=== PATIENT | female | born 1980 | race Caucasian/White ===

== ENCOUNTER 2016-07-14 12:56 | Emergency (ER) | payer OTHER ==
[2016-07-14] MEDS ORDERED: NS 500 ML IV ONE (12:59)
[2016-07-14 13:07] VITALS: PULSE 78
--- NOTE | 2016-07-14 13:30 | CPEKG ---
Heart Rate: 65 RR Interval: 923 P-R Interval: 148 QRSD Interval: 84 QT Interval: 412 QTC Interval: 429 P [place]: 76 QRS [place]: 67 T Wave [place]: 53 EKG Severity - NORMAL ECG - EKG Impression: SINUS RHYTHM Electronically Signed By: Svetlana Petit 14-Jul-2016 15:04:58
[2016-07-14 13:41] LABS: % IMMATURE GRANULYOCYTES 0.2 % (0.0-1.1); ABSOLUTE IMMATURE GRANULOCYTES 0.01 10^3/uL (0.00-0.10); ADD DIFF? NO; ADD MORPH? NO; ADD SCAN? NO; ATYPICAL LYMPHOCYTE FLAG 80 (0-99); FRAGMENT RBC FLAG 0 (0-99); HEMATOCRIT 44.5 % (38.0-47.0); HEMOGLOBIN 15.5 g/dL (12.6-16.3); LEFT SHIFT FLG 0 (0-99); LIPEMIA HEMOLYSIS FLAG 90 (0-99); MEAN CELL HEMOGLOBIN 30.8 pg (27.9-34.1); MEAN CELL HEMOGLOBIN CONCENTR. 34.8 g/dL (32.4-36.7); MEAN CELL VOLUME 88.5 fL (81.5-99.8); MEAN PLATELET VOLUME 9.7 fL (8.7-11.7); PLATELET CLUMPS FLAG 0 (0-99); PLATELET COUNT 249 10^3/uL (150-400); RED BLOOD CELL COUNT 5.03 10^6/uL (4.18-5.33); RED CELL DISTRIBUTION WIDTH 12.1 % (11.5-15.2)
[2016-07-14 13:58] LABS: ANION GAP 11 mEq/L (8-16); CALCIUM 9.4 mg/dL (8.5-10.4); CARBON DIOXIDE 25 mEq/l (22-31); CHLORIDE 104 mEq/L (97-110); CREATININE 0.7 mg/dL (0.6-1.0); GLOMERULAR FILTRATION RATE > 60; GLUCOSE 110 mg/dL (70-100); POTASSIUM 4.1 mEq/L (3.5-5.2); SODIUM 140 mEq/L (134-144)
--- NOTE | 2016-07-14 14:02 | EDPHY ---
H & P Smoking Status: Never smoked Time Seen by Provider: 07/14/16 12:59 HPI/ROS: HPI Chest pain, anxiety, shortness of breath. 36-year-old female by private vehicle. She has a history of factor 5 Leiden deficiency. This patient reports that she woke at about 8:00 a.m. and felt very anxious. She describes herself as having shortness of breath. Then she thought that she might have a pulmonary embolism and started having which she describes as mid substernal chest pain. She became more anxious. This persisted for a couple of hours, the anxiety dissipated some but the chest discomfort which she describes as a mid substernal ache persisted. She has no prior history of DVT or PE. No prior history of coronary artery disease. She is not on control pills. Denies any calf pain. No other complaints. ROS: Constitutional: No fever, no chills. No weakness. Eyes: No discharge. No changes in vision. ENT: No sore throat. No nasal congestion or rhinorrhea. Respiratory: No cough. As above. Cardiac: As above, no palpitations. Gastrointestinal: No abdominal pain, no vomiting, no diarrhea. Genitourinary: No hematuria. No dysuria or increased frequency with urination. Musculoskeletal: No back pain. No neck pain. No myalgias or arthralgias. Skin: No rashes. Neurological: No headache. No focal weakness or altered sensation. Past medical history: Factor 5 Leiden deficiency. Social history: Here by herself. Nonsmoker. Physical Exam: General Appearance: Alert, no distress. This patient is responding to questions appropriately and in full sentences. This patient appears well- hydrated and well-nourished. Eyes: Pupils equal and round no pallor or injection. No lid edema, erythema or injection. Respiratory: There are no retractions, lungs are clear to auscultation with good air movement bilaterally. Cardiovascular: Regular rate and rhythm. No murmur. No chest wall tenderness on palpation. Gastrointestinal: Abdomen is soft and nontender, no masses, bowel sounds normal. No focal tenderness at McBurney's point. No Abdi sign. Neurological: Motor sensory function is grossly intact. Cranial nerves are normal. Gait is normal. Skin: Warm and dry, no rashes. Musculoskeletal: Neck is supple and nontender. Extremities are symmetrical. All joints range without pain or impingement. Psychiatric: No agitation. No depression. Database: EKG: EKG time is 1:28 p.m.; EKG shows a narrow complex normal sinus rhythm with a ventricular rate of 65. The IN, QRS, QT intervals are within normal limits. There are no ST-T wave changes indicative of ischemic or injury pattern. No evidence of right heart strain. Interpreted by me. Imaging: Chest x-ray PA and lateral; the cardiac mediastinal silhouette is unremarkable. No evidence of infiltrate or pneumothorax. No acute cardiopulmonary disease process noted. Interpreted by me. Procedures: Emergency department course: IV placed. She was placed on a luggage repairer. EKG obtained. She was given 324 mg of chewed aspirin from triage. 2:05 p.m., patient resting comfortably. Results of her slightly elevated D- dimer discussed. Noticed that she had a prior CT angio of her chest in 2014. I discussed we imaging by CT angiogram given her history of factor 5 Leiden deficiency and her current complaint. She consented. 3:00 p.m., waiting CT angiogram of chest results. Patient's laboratory work has been reviewed with her as well as EKG. All of her questions were answered. Care will be turned over to Dr. Luis A Cisneros will follow up on results of CT angiogram to evaluate for possible pulmonary embolism. Assuming negative, expected course is discharged to home. Differential Diagnosis: The differential diagnosis on this patient includes but is not limited to anxiety reaction, panic attack, noncardiac chest pain. Pulmonary embolism, aortic dissection, acute coronary syndrome, myocarditis, pericarditis, pneumonia unlikely. This represents a partial list of diagnoses considered. These considerations are based on history, physical exam, past history, reassessment and diagnostic testing. (Svetlana Petit) Constitutional: Initial Vital Signs Temperature (C) 36.7 C 07/14/16 13:02 Heart Rate 78 07/14/16 13:02 Respiratory Rate 16 07/14/16 13:02 Blood Pressure 130/85 H 07/14/16 13:02 O2 Sat (%) 98 07/14/16 13:02 Allergies/Adverse Reactions: No Known Allergies Allergy (Verified 07/14/16 13:07) Home Medications: Medication Instructions Recorded Levothyroxine 02/05/15 - Data Points Laboratory Results: Laboratory Results 07/14/16 13:31 07/14/16 13:31 07/14/16 13:31 WBC 4.95 10^3/uL (3.80-9.50) RBC 5.03 10^6/uL (4.18-5.33) Hgb 15.5 g/dL (12.6-16.3) Hct 44.5 % (38.0-47.0) MCV 88.5 fL (81.5-99.8) MCH 30.8 pg (27.9-34.1) MCHC 34.8 g/dL (32.4-36.7) RDW 12.1 % (11.5-15.2) Plt Count 249 10^3/uL (150-400) MPV 9.7 fL (8.7-11.7) Neut % (Auto) 63.4 % (39.3-74.2) Lymph % (Auto) 29.5 % (15.0-45.0) [place] % (Auto) 5.7 % (4.5-13.0) Eos % (Auto) 0.6 % (0.6-7.6) Baso % (Auto) 0.6 % (0.3-1.7) Nucleat RBC Rel Count 0.0 % (0.0-0.2) Absolute Neuts (auto) 3.14 10^3/uL (1.70-6.50) Absolute Lymphs (auto) 1.46 10^3/uL (1.00-3.00) Absolute Monos (auto) 0.28 L 10^3/uL (0.30-0.80) Absolute Eos (auto) 0.03 10^3/uL (0.03-0.40) Absolute Basos (auto) 0.03 10^3/uL (0.02-0.10) Absolute Nucleated RBC 0.00 10^3/uL (0-0.01) Immature Gran % 0.2 % (0.0-1.1) Immature Gran # 0.01 10^3/uL (0.00-0.10) D-Dimer 0.53 H ug/mLFEU (0.00-0.50) Sodium 140 mEq/L (134-144) Potassium 4.1 mEq/L (3.5-5.2) Chloride 104 mEq/L (97-110) Carbon Dioxide 25 mEq/l (22-31) Anion Gap 11 mEq/L (8-16) BUN 11 mg/dL (7-23) Creatinine 0.7 mg/dL (0.6-1.0) Estimated GFR > 60 Glucose 110 H mg/dL (70-100) Calcium 9.4 mg/dL (8.5-10.4) Troponin I < 0.012 ng/mL (0-0.034) Beta HCG, Qual NEGATIVE Medications Given: Discontinued Medications Sodium Chloride (Ns) 500 mls @ 0 mls/hr IV ONCE ONE PRN Reason: As Directed Stop: 07/14/16 13:00 Last Admin: 07/14/16 14:17 Dose: 500 mls Departure - Departure Disposition: Home, Routine, Self-Care Clinical Impression: Chest pain, Anxiety Condition: Good Instructions: Anxiety (ED), Chest Pain (ED) Additional Instructions: Read and follow provided instructions. Follow-up with your primary care physician in 1-2 days for re-evaluation. Return to the emergency department for worsening chest pain, difficulty breathing or other serious concerns. Referrals: Abeab Meza MD [Primary Care Provider] - As per Instructions
--- NOTE | 2016-07-14 14:07 | DX ---
PA and Lateral Chest History: Chest pain and shortness of breath in a 36-year-old female; comparison CT scan of the chest February 05, 2015. Findings: The heart and mediastinum are normal. Pulmonary vascularity is normal. The lungs are clear. There is no pleural fluid. A pneumothorax is not identified. Impression: Chest negative for acute abnormality.
[2016-07-14 14:08] LABS: TROPONIN I < 0.012 ng/mL (0-0.034)
[2016-07-14] MEDS ORDERED: IOPAMIDOL (ISOVUE 370) 100 ML BTL IV ONE (15:06)
--- NOTE | 2016-07-14 15:09 | CT ---
CT Chest Angiogram Comparison: January 2015 Indication: Chest pain. History of factor V clotting disorder. Evaluate for PE. Technique: Thinly collimated multidetector helical CT imaging was performed through the chest while 90 mL of Isovue-370 were injected intravenously without complication. The images were then transferr ed to an independent workstation where multiplanar reconstructions were performed. Dose reduction jazmin hniques were utilized. Findings: CT Chest Angiogram: The pulmonary arterial system is well opacified. No intraluminal filling defect s to suggest acute or chronic thrombopulmonary embolic disease. The thoracic aorta is normal caliber . No aneurysm or dissection. CT Chest: The lungs are clear. No pulmonary nodule, mass, or enlarged lymph nodes. Heart size is nor mal. No pericardial or pleural effusion. Probable benign hemangioma is seen posteriorly in the right lobe the liver similar in appearance with this limited evaluation.. Impression: 1. No evidence of thrombopulmonary embolic disease. 2. Probable benign hemangioma right lobe of the liver. Results discussed with Stefan Wheeler PA-C.
[2016-07-14 19:09] VITALS: BP 124/62; RESP 18; TEMP 98; O2SAT 97
== END 2016-07-14 19:07 | disposition home or self-care (01) ==
LOC: CED 12:56
DX: R07.9 Chest pain, unspecified (principal); F41.9 Anxiety disorder, unspecified; R06.02 Shortness of breath
CPT/HCPCS: 71020-PO; 71275-PO; 80048-PO; 84484-PO; 84703-PO; 85025-PO; 85378-PO; 96360-PO; G0463-PO; Q9967

== ENCOUNTER 2018-07-12 07:46 | Emergency (ER) | payer OTHER ==
[2018-07-12 07:55] VITALS: BP 123/82
--- NOTE | 2018-07-12 08:15 | EDPHY ---
H & P Stated Complaint: Hives generalized body, swelling in face x 3 days Time Seen by Provider: 07/12/18 07:50 HPI/ROS: Chief Complaint: Rash, swelling HPI: 38-year-old woman presenting with 4 days of rash and some facial swelling. Patient states that Thursday night she had some nausea vomiting. After that she developed some itching and swelling around her eyes and lips. She went to urgent care and had a shot of Solu-Medrol. She was instructed to come the emergency department if it does not improve for IV steroids. Patient has had a rash over her upper trunk, back. Scalp has been itchy. No fevers or chills. No difficulty breathing. No difficulty swallowing. No history of allergies in the past. Has had some mild upper respiratory symptoms for the last 2 days. ROS: 10 systems were reviewed and were negative except those elements noted in the HPI. PMH: Denies Social History: No smoking, no alcohol, no recreational drug use Family History: non-contributory Physical Exam: Gen: Awake, Alert, No Distress HEENT: Nose: no rhinorrhea Eyes: PERRLA, EOMI Mouth: Moist mucosa Neck: Supple, no JVD Chest: nontender, lungs clear to auscultation Heart: S1, S2 normal, no murmur Abd: Soft, non-tender, no guarding Back: no CVA tenderness, no midline tenderness Ext: no edema, non-tender Skin: Patient has a mild annular rash on her upper chest and upper back. There are no herald patch is appreciated. They are blanching. There are no petechiae. There are no confluent urticaria. They are not raised. Neuro: CN II-XII intact, Sensation grossly intact, Strength 5/5 in bilateral upper and lower extremities - Personal History LMP (Females 10-55): 8-14 Days Ago Current Tetanus Diphtheria and Acellular Pertussis (TDAP): Yes Tetanus Vaccine Date: within 10 yrs - Medical/Surgical History Hx Asthma: No Hx Chronic Respiratory Disease: No Hx Diabetes: No Hx Cardiac Disease: No Hx Renal Disease: No Hx Cirrhosis: No Hx Alcoholism: No Hx HIV/AIDS: No Hx Splenectomy or Spleen Trauma: No Other PMH: Hypothyroidism. Surg ortho scopes / Csec. Med Factor V liden. - Social History Smoking Status: Never smoked Constitutional: Initial Vital Signs Temperature (C) 36.9 C 07/12/18 07:52 Heart Rate 81 07/12/18 07:52 Respiratory Rate 16 07/12/18 07:52 Blood Pressure 123/82 H 07/12/18 07:52 O2 Sat (%) 99 07/12/18 07:52 O2 Delivery Mode Room Air Allergies/Adverse Reactions: No Known Allergies Allergy (Verified 07/12/18 07:52) Home Medications: Medication Instructions Recorded Levothyroxine 02/05/15 Aspirin 07/12/18 predniSONE 60 mg PO DAILY #9 tab 07/12/18 Medical Decision Making ED Course/Re-evaluation: Patient has a mild annular rash on her upper chest and back. They do not appear to be urticaria but rather a viral exanthem. They are not pruritic. Patient is complaining of some swelling and some itching on her scalp. Plan will be to give her 3 day course of prednisone as she believes that this helped from last week. She can continue taking Benadryl. I have told her that symptoms should improve in 8-10 days. She will follow up with primary care physician in several days for recheck. Departure - Departure Disposition: Home, Routine, Self-Care Clinical Impression: Rash Condition: Good Instructions: Acute Rash (ED), Viral Exanthem (ED) Additional Instructions: I believe the rash is a result of a general viral illness. It should resolve within 8-10 days. Continue taking Benadryl as needed for itch or swelling. May take prednisone for the next 3 days to help treat her symptoms. Follow up with primary care physician in 2-3 days for recheck. Referrals: Prachi Zapata NP [Primary Care Provider] - As per Instructions Prescriptions: predniSONE 60 mg PO DAILY #9 tab
== END 2018-07-12 08:25 | disposition home or self-care (01) ==
LOC: CED 07:46
DX: R21 Rash and other nonspecific skin eruption (principal); M79.89 Other specified soft tissue disorders
CPT/HCPCS: 99283-ER